=== PATIENT | female | born 2000 ===

== ENCOUNTER 2024-09-03 21:34 | Emergency (ER) | payer SELFPAY ==
[2024-09-03 21:46] VITALS: BP 113/78; PULSE 112; RESP 16; TEMP 36.6; O2SAT 98
--- NOTE | 2024-09-03 23:11 | ED_ITS ---
HPI - Eye Problem General Chief complaint: Eye Problems Stated complaint: right eye swelling Time Seen by Provider: 09/03/24 22:53 History of Present Illness HPI Narrative: Patient was at her friend's house when she started having irritation to her right eye, it got very watery and red and hurt when she closed it. Initially blurry and watery but now has normal vision. Review of Systems Review of Systems: All systems reviewed & are unremarkable except as noted in HPI and below Exam Narrative: EXAMINATION OF ORGAN SYSTEMS/BODY AREAS: Constitutional: Vital signs per nursing GENERAL:[No acute distress, non-toxic appearing.] HEAD: Normal with no signs of head trauma. EYES: EOMI, injected sclera, PERRL ENT: Hearing grossly intact LUNGS: Nonlabored breathing. HEART: [Regular rate and rhythm] ABD: [Soft], [nontender to palpation] EXT: Normal range of motion SKIN: [No rashes or lesions.] NEURO: [Alert and oriented x 3. No gross focal sensory or strength deficits.] PSYCH: Normal affect Course Vital Signs Vital signs: Vital Signs Temperature 97.8 F 09/03/24 21:46 Pulse Rate 112 H 09/03/24 21:46 Respiratory Rate 16 09/03/24 21:46 Blood Pressure 113/78 09/03/24 21:46 Pulse Oximetry 98 09/03/24 21:46 Oxygen Delivery Room Air 09/03/24 21:46 Temperature 97.8 F 09/03/24 21:46 Pulse Rate 112 H 09/03/24 21:46 Respiratory Rate 16 09/03/24 21:46 Blood Pressure 113/78 09/03/24 21:46 Pulse Oximetry 98 09/03/24 21:46 Oxygen Delivery Room Air 09/03/24 21:46 MDM - Eye Problem MDM Narrative Medical decision making narrative: Patient presents with pain/redness to right eye; normal visual acuity, PERRL, s lightly injected eye, everted lids no FB. Fluorescein stain normal, pt sx resolved s/p tetracaine. Eye wash done. No FB visualized. Patient without symptoms currently, I suspect possibly a tiny eyelash or foreign body that is now gone away, follow-up to ophthalmology provided with return precautions, discussed patient and mom at bedside were agreeable to this plan Discharge Plan Discharge Clinical Impression: Irritation of right eye Patient Disposition: Home Condition: Improved Instructions: Eye Pain (ED) Additional Instructions: Avoid eye makeup for the next 2 days, if you start having more pain or pain with moving the eye or swelling of the eye or changes here vision, follow-up with the visual merchandising specialist as soon as possible or return to the emergency room. Patient Language: Azerbaijani Follow-up/Referrals: [facility] [Outside] - 1 Day PHYSICIAN NOT ON STAFF,NONSTAFF [Primary Care Provider] -
--- OUTSIDE RECORDS SUMMARY | 2024-09-03 23:44 | XMS_ITS | CONTINUITY OF CARE DOCUMENT ---
Author Name attila patrickpierce Address Unknown Organization 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 Name Role Phone Abbey Morataya MD Unavailable ANSELMO COYLE MD Unavailable ANSELMO COYLE MD Unavailable PROBLEMS Condition Status Date Provider Notes Syncope active Michi Reddy MD Palpitations active Michi Reddy MD Inappropriate sinus tachycardia active Thai Reddy MD Dizziness active Albaro Shipman SVT active Albaro Shipman Shortness of breath active Albaro Shipman Cardiology examination completed 8 - Albaro Shipman ENCOUNTERS Date Type Provider Location Encounter Diag nosis - In-person encounter Office Visit Abbey Morataya MD [place] [facility] Cardiology examination - In-person encounter Office Visit Abbey Morataya MD [place] [facility] - In-person encounter Office Visit Abbey Morataya MD [place] [facility] - In-person encounter Office Visit Abbey Morataya MD [place] [facility] SVTShortness of breath - In-person encounter Office Visit Abbey Morataya MD [place] [facility] Dizziness - In-person encounter Office Visit Michi Reddy MD [place] [facility] Inappropriate sinus tachycardia - In-person encounter Office Visit Michi Reddy MD [place] [facility] - In-person encounter Office Visit Michi Reddy MD [facility] - In-person encounter Office Visit Michi Reddy MD [facility] SyncopePalpitations VITAL SIGNS Date Observation Value Provider Body Mass Index (Ratio) 19.13 kg/m2 Albaro Shipman blood pressure, cuff size small Ke rri Gruenenfelder blood pressure, diastolic 84 mm[Hg] Ke rri Gruenenfelder blood pressure, systolic 124 mm[Hg] Wilver ri Gruenenfelder oxygen saturation, oximetry 100 % Razia Gruenenfelder respiratory rate E&M 14 /min Razia G ángelaenenfelder pulse rate 99 /min Razia Grmarke er weight E&M 108 [lb_av] Razia Gruenenfe er height E&M 63 [in_i] Razia Alexnenfe er Body Mass Index (Ratio) 18.78 kg/m2 Albaro Rosyfelix blood pressure, diastolic 78 mm[Hg] Ke rri Gruenenfelder blood pressure, systolic 112 mm[Hg] Ker ri Gruenenfelder blood pressure, cuff size small Ke rri Gruenenfelder oxygen saturation, oximetry 99 % Razia Gruenenfelder respiratory rate E&M 14 /min Razia G ruenenfelder pulse rate 85 /min Razia Davies caron weight E&M 106 [lb_av] Razia reardon height E&M 63 [in_i] Razia reardon blood pressure, diastolic 73 mm[Hg] Ri artemio Agarwal blood pressure, systolic 98 mm[Hg] [facility] damaris Agarwal blood pressure, cuff size regular Ri artemio Agarwal oxygen saturation, oximetry 99 % Roshni Agarwal respiratory rate E&M 16 /min Bhanu Agarwal pulse rate 118 /min Roshni ramos Body Mass Index (Ratio) 18.78 kg/m2 Edgardo Agarwal weight in kilograms E&M 48.08 kg Edgardo Agarwal weight E&M 106 [lb_av] Roshni ramos height E&M 63 [in_i] Roshni ramos height in centimeters E&M 160.02 cm Joao Agarwal Body Mass Index (Ratio) 19.39 kg/m2 Albaro Shipman blood pressure, diastolic 81 mm[Hg] Nc artemio Lino blood pressure, systolic 93 mm[Hg] [facility] damaris Lino oxygen saturation, oximetry 98 % Keya Lino pulse rate 100 /min Keya hawkins weight E&M 113 [lb_av] Keya hawkins respiratory rate E&M 16 /min Radha Lino blood pressure, cuff size large Nc artemio Lino height E&M 64 [in_i] Keya hawkins Body Mass Index (Ratio) 18.19 kg/m2 Albaro Gallegosmedzagildardo blood pressure, cuff size regular colten Nereida blood pressure, diastolic 78 mm[Hg] Viet Johnsonnenfelder blood pressure, systolic 114 mm[Hg] Wilver Cartagenaelder oxygen saturation, oximetry 92 % Razia Wynnnfelder respiratory rate E&M 14 /min Razia Amato ruenenfelder pulse rate 88 /min Razia Cartagenae lder weight E&M 106 [lb_av] Razia Johnsonnenfe lder height E&M 64 [in_i] Razia Johnsonnebrendae lder weight E&M 102 [lb_av] Nghia porras Body Mass Index (Ratio) 18.19 kg/m2 Thai Reddy MD blood pressure, diastolic 78 mm[Hg] Ca therine Joshua blood pressure, systolic 117 mm[Hg] Cat herine Joshua oxygen saturation, oximetry 99 % Erika Joshua respiratory rate E&M 16 /min Catheri ne Prescott pulse rate 95 /min Erika Joshua weight E&M 106 [lb_av] Erika Joshua blood pressure, cuff size regular Ca therine Prescott height E&M 64 [in_i] Erika Prescott blood pressure, diastolic 65 mm[Hg] Quita Abrams blood pressure, systolic 98 mm[Hg] Lori Abrams blood pressure, cuff size small Quita Abrams oxygen saturation, oximetry 99 % Roger Abrams respiratory rate E&M 16 /min Mamie Abrams pulse rate 75 /min Roger ramos Body Mass Index (Ratio) 17.33 kg/m2 Claudine Abrams weight in kilograms E&M 45.81 kg Claudine Abrams weight E&M 101 [lb_av] Roger ramos height E&M 64 [in_i] Roger ramos height in centimeters E&M 162.56 cm Quita Abrams Body Mass Index (Ratio) 17.68 kg/m2 Thai Reddy MD blood pressure, diastolic 74 mm[Hg] Ca therine Joshua blood pressure, systolic 113 mm[Hg] Cat herine Joshua oxygen saturation, oximetry 98 % Erika Joshua respiratory rate E&M 16 /min Catheri ne Prescott pulse rate 96 /min Erika Joshua weight E&M 103 [lb_av] Erika Joshua blood pressure, cuff size regular Ca therine Prescott height E&M 64 [in_i] Erika Joshua Body Mass Index (Ratio) 17.33 kg/m2 Thai Reddy MD blood pressure, diastolic 61 mm[Hg] Li nkLogic blood pressure, systolic 103 mm[Hg] Enid kLogic blood pressure, cuff size small Mi artemio Lino blood pressure, diastolic 61 mm[Hg] Mi artemio Erie blood pressure, systolic 103 mm[Hg] [facility] helle Erie oxygen saturation, oximetry 99 % Keya Lino respiratory rate E&M 18 /min Radha Lino pulse rate 87 /min Keya hawkins weight E&M 101 [lb_av] Keya hawkins height E&M 64 [in_i] Keya hawkins ALLERGIES Allergy Name Onset Date Reaction Criticality Status PCN High Criticality active HISTORY OF MEDICATION USE Medication Status Instructions Dates Provider Indications Com ments flecainide 50 mg tablet active Take 1 tablet by mouth twice a day Take six tablets at one time as needed for palpitations Abbey Morataya MD Inappropriate sinus tachycardia propranolol 10 mg tablet active Take 1 tablet by mouth three times a day Ana Arvizu NP Eliquis 5 mg tablet completed Take 1 tablet by mouth twice a day - Ana Arvizu NP magnesium oxide 400 mg magnesium tablet active Take 1 tablet by mouth twice a day Ana Arvizu NP potassium chloride 20 mEq tablet extended release completed Take 1 tablet once a day - Ana Arvizu NP SOCIAL HISTORY Date Observation Value Provider Underweight no Albaro Carbajalzagildardo social history reviewed E&M revi ewed - no changes required Albaro Carbajalzai social history E&M S moking History: Faisal gooden has never smoked. Albaro Gallegosmedzai social history reviewed E&M revi ewed - no changes required Albaro Ahmedzai Underweight yes Albaro Ahmedzai smoking status Never smoker Razia mustafa Underweight yes Albaro Gallegosmedzai smoking status Never smoker Roshni terry Underweight no Albaro Ahmedzai social history E&M S moking History: Faisal gooden has never smoked. Albaro Ahmedzai social history reviewed E&M revi ewed - no changes required Albaro Ahmedzai smoking status Never smoker Keya Mclaughlin and Underweight yes Albaro Gallegosmedzai social history E&M S moking History: Faisal gooden has never smoked. Albaro Gallegosmedzai social history reviewed E&M revi ewed - no changes required Albaro Ahmedzai smoking status Never smoker Razia mustafa Underweight yes Michi Reddy MD number of grandchildren Michi Reddy MD U jaquelin Reddy MD social history E&M S moking History: U nknown if patient has ever smoked. Michi Reddy MD social history reviewed E&M revi ewed - no changes required Michi Reddy MD smoking status Unknown if ever smoked Cat herine Prescott Underweight yes Michi Reddy MD social history reviewed E&M revi ewed - no changes required Michi Reddy MD Underweight yes Michi Reddy MD smoking status Unknown if ever smoked Felicity Reddy MD social history E&M S moking History: U nknown if patient has ever smoked. Michi Reddy MD Underweight yes Michi Reddy MD social history E&M S moking History: U nknown if patient has ever smoked. Michi Reddy MD smoking status Unknown if ever smoked Felicity Reddy MD social history reviewed E&M revi ewed - no changes required Michi Reddy MD FAMILY HISTORY Family Member Condition Mother Negative FH of Diabe glen, Hypertension, or Coronary Artery Disease INSURANCE PROVIDERS Payer name Policy type / Coverage type [place] [employer] party ID [facility] [id number] Other [id number] ADVANCE DIRECTIVES Name Date DISCUSSED - NO DECISION MADE TREATMENT PLAN Date Name Performer [id number],C,improved Albaro Shipman [id number],C, a ssociated to her SVT r esolved currently Albaro Shipman [id number],C,No recurrence Albaro Shipman [id number],C,C urrently medically treated and stable Albaro Shipman [id number] urrently medically treated and stable Albaro Shipman [id number],C, s /p EP study Final EP study summary S hort burst of atrial tachycardia was induced with aggressive right atrial pacing at 200 milliseconds paced train that degenerated to atrial fibrillation was induced that terminated on its own less than 20 seconds. No AV node reentry tachycardia or dual AV node physiology N o accessory pathway or accessory pathway mediated tachycardia No inducible ventricular tachycardia or ventricular fibrillation N o focal or automatic sustained atrial tachycardia No typical or atypical sustained atrial flutter could be induced Currently medically treated and stable Albaro Shipman [id number],C, H is updated medication list for this problem includes: Flecainide 50 Mg Tablet (Flecainide) ..... Take 1 tablet by mouth twice a day take six tablets at one time as needed for palpitations Propranolol 10 Mg Tablet (Propranolol) ..... Take 1 tablet by mouth three times a day Orders: 9 9213 LTD 20-29min (CPT-51006) S nadine Followup (*) M onitor - Telemetry (Mobile Cardiac) (CPT-80005) Abbey Morataya MD [id number],C, H is updated medication list for this problem includes: Flecainide 50 Mg Tablet (Flecainide) ..... Take 1 tablet by mouth twice a day take six tablets at one time as needed for palpitations Propranolol 10 Mg Tablet (Propranolol) ..... Take 1 tablet by mouth three times a day Orders: 9 9213 LTD 20-29min (CPT-69618) M onitor - Telemetry (Mobile Cardiac) (CPT-30610) Abbey Morataya MD [id number],C,c ontinues. see #1 His updated medication list for this problem includes: Propranolol 10 Mg Tablet (Propranolol) ..... Take 1 tablet by mouth three times a day will check home sleep study Ana Arvizu NP [id number],C,s /p EP study Final EP study summary S hort burst of atrial tachycardia was induced with aggressive right atrial pacing at 200 milliseconds paced train that degenerated to atrial fibrillation was induced that terminated on its own less than 20 seconds. No AV node reentry tachycardia or dual AV node physiology N o accessory pathway or accessory pathway mediated tachycardia No inducible ventricular tachycardia or ventricular fibrillation N o focal or automatic sustained atrial tachycardia No typical or atypical sustained atrial flutter could be induced will start propranolol 10mg. will start daily and increase up to TID. reviewed med plan with pt and mother Ana Arvizu [employer]TER [id number],C, a ssociated to her SVT Albarorogers Quick [id number],C, E pisodes of dizziness, syncope and palpitations are likely due to her SVT seen on quality assurance monitor. She was not able to tolerate beta otoniel, She is scheduled for ablation. Albaro Shipman [id number],W, a ssociated to her SVT Albarorogers Quick [id number],W,A blation scheduled O rders: P praveena 5-10 (CPT-97205) Albaro Quick [id number],C,associated to her SVT Albarorogers Carbajali [id number],C,associated to her [facility] [id number],C,S een on quality assurance monitor, is likely the reason for her syncopal episodes. will proceed with ablation. Albaro Shipman [id number],C,E pisodes of dizziness, syncope and palpitations are likely due to her SVT seen on quality assurance monitor. She was not able to tolerate beta otoniel, recommend she undergo Ep study and ablation to assess obliterate her arrythmias. Discussed risks and benefits and she expressed understanding. Albaro Quicki [id number],S, Albaro Quick i [id number],S, Albaro Quick i [id number],S, Albaro Quick i [id number],C,S xs occurs with associated rapid HR, she wore a quality assurance monitor showing sinus rhythm with rare VEs, Morphology of P waves is the same when she is in sinus tach, normal echo and normal routine stress test, her resting HR is not optimal and elevated consistently. She states Metoprolol did help her for a few weeks but stopped working and she then continued to have sxs of dizziness, vision blurring. I do not recommend anti arrythmic medications for her such as Digoxin. 0 05/2020 blood work showed K was 3.6, LFTs were normal, Hgb was normal. R ecommended blood work to check iron levels. WIll start her on Kcl 20 meq and magnesium 400 mg once daily. Advised she continue to hydrate. Will monitor her BP with RPM and check holter before next follow up. Albaro Shipman [id number],S, S he didn't tolerate the toprol. We'll refer her to EP for an evaluation of inappropriate sinus tachycardia. Michi Reddy MD [id number],B, Michi Reddy MD [id number],S, Michi Reddy MD [id number],C,Will start pt on Toprol. Michi Reddy MD [id number],C, O Ne syncopal episode. Will schedule her with an echo Michi Reddy MD [id number],C, H as been having intermittent palpitations since syncopal episode. Will obtain telesentry monitor for 2 weeks Michi Reddy MD Electrophysiology:improved Albaro Shipman Electrophysiology: a ssociated to her SVT r esolved currently Albaro Shipman Electrophysiology:No recurrence Albaro Shipman Electrophysiology:Cu rrently medically treated and stable Albaro Shipman Electrophysiology:Cu rrently medically treated and stable Albaro Shipman Electrophysiology: s /p EP study Final EP study summary S hort burst of atrial tachycardia was induced with aggressive right atrial pacing at 200 milliseconds paced train that degenerated to atrial fibrillation was induced that terminated on its own less than 20 seconds. No AV node reentry tachycardia or dual AV node physiology N o accessory pathway or accessory pathway mediated tachycardia No inducible ventricular tachycardia or ventricular fibrillation N o focal or automatic sustained atrial tachycardia No typical or atypical sustained atrial flutter could be induced Currently medically treated and stable Albaro Shipman Electrophysiology: H is updated medication list for this problem includes: Flecainide 50 Mg Tablet (Flecainide) ..... Take 1 tablet by mouth twice a day take six tablets at one time as needed for palpitations Propranolol 10 Mg Tablet (Propranolol) ..... Take 1 tablet by mouth three times a day Orders: 9 9213 [facility] 20-29min (CPT-69975) S nadine Followup (*) M onitor - Telemetry (Mobile Cardiac) (CPT-65038) Abbey Morataya MD Electrophysiology: H is updated medication list for this problem includes: Flecainide 50 Mg Tablet (Flecainide) ..... Take 1 tablet by mouth twice a day take six tablets at one time as needed for palpitations Propranolol 10 Mg Tablet (Propranolol) ..... Take 1 tablet by mouth three times a day Orders: 9 9213 [facility] 20-29min (CPT-42541) M onitor - Telemetry (Mobile Cardiac) (CPT-96548) Abbey Morataya MD Electrophysiology:co ntinues. see #1 His updated medication list for this problem includes: Propranolol 10 Mg Tablet (Propranolol) ..... Take 1 tablet by mouth three times a day will check home sleep study Ana Arvizu NP Electrophysiology:s/ p EP study Final EP study summary S hort burst of atrial tachycardia was induced with aggressive right atrial pacing at 200 milliseconds paced train that degenerated to atrial fibrillation was induced that terminated on its own less than 20 seconds. No AV node reentry tachycardia or dual AV node physiology N o accessory pathway or accessory pathway mediated tachycardia No inducible ventricular tachycardia or ventricular fibrillation N o focal or automatic sustained atrial tachycardia No typical or atypical sustained atrial flutter could be induced will start propranolol 10mg. will start daily and increase up to TID. reviewed med plan with pt and mother Ana Arvizu [employer] C[employer] Telehealth: a ssociated to her SVT Albaro Rosyfelix Telehealth: E pisodes of dizziness, syncope and palpitations are likely due to her SVT seen on quality assurance monitor. She was not able to tolerate beta otoniel, She is scheduled for ablation. Albarorogers Shipman Telehealth: a ssociated to her SVT Abbey Morataya MD Telehealth:Ablation scheduled O rders: P praveena 5-10 (CPT-26042) Abbey Morataya MD Electrophysiology:associated to her SVT Albarorogers Shipman Electrophysiology:associated to her SVT Albaro felix Electrophysiology:Se en on quality assurance monitor, is likely the reason for her syncopal episodes. will proceed with ablation. Albarorogers Shipman Electrophysiology:Ep isodes of dizziness, syncope and palpitations are likely due to her SVT seen on quality assurance monitor. She was not able to tolerate beta otoniel, recommend she undergo Ep study and ablation to assess obliterate her arrythmias. Discussed risks and benefits and she expressed understanding. Albaro Shipman Electrophysiology Ablarorogers Shipman Electrophysiology Albaro rosaline Electrophysiology [facility] Electrophysiology:Sx s occurs with associated rapid HR, she wore a quality assurance monitor showing sinus rhythm with rare VEs, Morphology of P waves is the same when she is in sinus tach, normal echo and normal routine stress test, her resting HR is not optimal and elevated consistently. She states Metoprolol did help her for a few weeks but stopped working and she then continued to have sxs of dizziness, vision blurring. I do not recommend anti arrythmic medications for her such as Digoxin. 0 05/2020 blood work showed K was 3.6, LFTs were normal, Hgb was normal. R ecommended blood work to check iron levels. WIll start her on Kcl 20 meq and magnesium 400 mg once daily. Advised she continue to hydrate. Will monitor her BP with RPM and check holter before next follow up. Albaro Shipman Cardiology: S he didn't tolerate the toprol. We'll refer her to EP for an evaluation of inappropriate sinus tachycardia. Michi Reddy MD Cardiology Michi Reddy MD Cardiology Michi Reddy MD Cardiology:Will start pt on Topr ol. Michi Reddy MD Cardiology: O Ne syncopal episode. Will schedule her with an echo Michi Reddy MD Cardiology: H as been having intermittent palpitations since syncopal episode. Will obtain telesentry monitor for 2 weeks Michi Reddy MD Date Name Monitor - Telemetry (Mobile Cardiac) Monitor - Telemetry (Mobile Cardiac) Sleep Study Home BASIC METABOLIC PANE L W/EGFR Partial Thromboplast in Time, Activated PROTHROMBIN TIME WIT H INR CBC (INCLUDES DIFF/P LT) ABLATION w/ Anesthes ia EP Study RPM (remote patient monitoring) Holter Monitor 48 hr VITAMIN B12/FOLATE, SERUM PANEL Cortisol TSH, free T4, total T3 FERRITIN IRON AND TOTAL IRON BINDING CAPACITY Holter Monitor 24 Hr Stress Routine Monitor - Telemetry (Mobile Cardiac) Complete Echo HISTORY OF PROCEDURES Procedure Date Procedure Name Provider Procedure Notes S elroyus Schedule Followup Abbey Morataya MD fu in 3 months completed EKG Abbey Morataya MD comp leted Schedule Followup Abbey Morataya MD [address] Morataya completed EKG Abbey Morataya MD comp leted EKG Abbey Morataya MD comp leted EKG Abbey Morataya MD comp leted EKG Michi Reddy MD completed
== END 2024-09-03 23:47 | disposition home or self-care (01) ==
LOC: ANHED 23:42
PROVIDERS: Emergency Provider Emergency Medicine
DX: H57.11 Ocular pain, right eye (principal)
CPT/HCPCS: 99283; A9270